=== PATIENT | male | born 1975 | race Caucasian/White ===

== ENCOUNTER 2019-02-25 07:44 | Emergency (ER) | payer BC ==
[2019-02-25] MEDS ORDERED: Morphine 4 MG/ML Syringe IVPUSH ONE ×2 (08:26→10:51)
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
[2019-02-25] MEDS ORDERED: Sodium Chloride 0.9% 1,000 ML IV STA (08:29)
[2019-02-25] MEDS ORDERED: Iopamidol 612 MG/ML 100 ML Bottle IV PRN (08:34)
[2019-02-25] MEDS ORDERED: Sodium Chloride 0.9% 10 ML Syringe FLUSH PRN (08:34)
[2019-02-25] MEDS ORDERED: Sodium Chloride 0.9% 80 ML IV ONE (08:34)
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
== END 2019-02-25 11:36 ==
LOC: JP.ED 07:44
DX: S42.112A Displaced fracture of body of scapula, left shoulder, initial encounter for closed fracture (principal); S22.081A Stable burst fracture of T11-T12 vertebra, initial encounter for closed fracture; S22.32XA Fracture of one rib, left side, initial encounter for closed fracture; S12.500A Unspecified displaced fracture of sixth cervical vertebra, initial encounter for closed fracture; S12.600A Unspecified displaced fracture of seventh cervical vertebra, initial encounter for closed fracture; S27.329A Contusion of lung, unspecified, initial encounter; V86.52XA Driver of snowmobile injured in nontraffic accident, initial encounter
CPT/HCPCS: 36415; 70450; 71260; 72125; 74177; 80053; 85025; 85610; 96361; 96374; 96376; 99285; J2270; J7030; J7050; Q9967